=== PATIENT | female | born 1985 | race Caucasian/White ===

== ENCOUNTER → 2022-05-22 | Outpatient (CLI) | payer OTHER ==
[~2022-05-22] MED LIST: PRENATA CHEWAB1 EACH; VALTREX1000 MG PO
== END | disposition home or self-care (01) ==
LOC: NST 16:51
PROVIDERS: ATTEND Obstetrics & Gynecology Gynecology
DX: Z34.83 Encounter for supervision of other normal pregnancy, third trimester (principal)

== ENCOUNTER 2022-05-23 04:58 | Inpatient (IN) | payer OTHER ==
[~2022-05-23] VITALS: Ht 162.6 cm; Wt 74.8 kg
[2022-05-23] MEDS ORDERED: PRENATA CHEWAB1 EACH (07:33)
[2022-05-23] MEDS ORDERED: VALTREX1000 MG PO (07:34)
== END 2022-05-25 14:05 | disposition home or self-care (01) | DRG 807 ==
LOC: LDR 04:58 → OB/GYN 17:46
PROVIDERS: ADMIT Obstetrics & Gynecology Gynecology; ATTEND Obstetrics & Gynecology Gynecology
PROC: 10E0XZZ Delivery of Products of Conception, External Approach (ICD-10-PCS; principal; 2022-05-23)
PROC: 4A1HXCZ Monitoring of Products of Conception, Cardiac Rate, External Approach (ICD-10-PCS; 2022-05-23)
DX: O80 Encounter for full-term uncomplicated delivery (principal); Z37.0 Single live birth; Z3A.39 39 weeks gestation of pregnancy; Z20.822 Contact with and (suspected) exposure to COVID-19